=== PATIENT | female | born 1985 | race Two or more races ===

== ENCOUNTER → 2024-02-08 | Emergency (ER) | payer BC, OTHER ==
[~2024-02-08] VITALS: Ht 160 cm; Wt 86.0 kg
[~2024-02-08] MED LIST: SULF400T11 PO
[2024-02-08] MEDS: LIDOCAINE W/ EPINEPHRINE 1% 20ML VIAL ID ONE (07:30)
[2024-02-08 07:36] VITALS: BP 136/95; PULSE 108; RESP 19; O2SAT 97
[2024-02-08] MEDS: ONDANSETRON ODT 4 MG TAB PO ONE (08:00)
[2024-02-08] MEDS: TETANUS-DIPTH-ACEL PERTUSSIS 0.5ML SYR Tdap IM ONE (08:11)
== END | disposition home or self-care (01) ==
LOC: ER 07:21
DX: S91.312A Laceration without foreign body, left foot, initial encounter (principal); Z88.8 Allergy status to other drugs, medicaments and biological substances; W18.30XA Fall on same level, unspecified, initial encounter; Y93.89 Activity, other specified; Y92.89 Other specified places as the place of occurrence of the external cause; Y99.8 Other external cause status
CPT/HCPCS: 12001; 90471; 90715; 99283; Q0162

== ENCOUNTER 2024-02-18 11:00 | Emergency (ER) | payer BC ==
[~2024-02-18] VITALS: Ht 167.6 cm; Wt 107.4 kg
[2024-02-18 12:00] VITALS: BP 132/95; PULSE 104; RESP 14; TEMP 98.3; O2SAT 96
[2024-02-18] MEDS ORDERED: CLIN1CAP70 PO (12:07)
== END 2024-02-18 12:12 | disposition home or self-care (01) ==
LOC: ER 11:00
DX: S91.312D Laceration without foreign body, left foot, subsequent encounter (principal); Z48.817 Encounter for surgical aftercare following surgery on the skin and subcutaneous tissue; Z88.6 Allergy status to analgesic agent; X58.XXXD Exposure to other specified factors, subsequent encounter

== ENCOUNTER 2024-02-25 18:22 | Emergency (ER) | payer BC ==
[~2024-02-25] VITALS: Ht 167.6 cm; Wt 105.5 kg
[~2024-02-25 18:22] MED LIST changes: +CLIN1CAP70 PO
[2024-02-25 20:19] VITALS: BP 140/91; PULSE 105; RESP 19; TEMP 98; O2SAT 96
== END 2024-02-25 20:39 | disposition home or self-care (01) ==
LOC: ER 18:22
DX: S91.312D Laceration without foreign body, left foot, subsequent encounter (principal); Z88.1 Allergy status to other antibiotic agents; X58.XXXD Exposure to other specified factors, subsequent encounter